=== PATIENT | female | born 1995 | race Caucasian/White ===

== ENCOUNTER 2018-05-30 04:38 | Emergency (ER) | payer SELFPAY ==
[~2018-05-30] VITALS: Ht 162.6 cm; Wt 108.9 kg
[2018-05-30] MEDS ORDERED: ACET-704 PO (04:58)
--- NOTE | 2018-05-30 05:02 | PHYS DOC ---
Adult General Chief Complaint Chief Complaint back pain HPI HPI 23 years old female with history of sciatica presented to the emergency department with pain in the lower back radiating to her right leg stated it similar to the pain she had before . Pain is worse during her Review of Systems Review of Systems Constitutional: Denies fever or chills [] Eyes: Denies change in visual acuity, redness, or eye pain [] HENT: Denies nasal congestion or sore throat [] Respiratory: Denies cough or shortness of breath [] Cardiovascular: No additional information not addressed in HPI [] GI: Denies abdominal pain, nausea, vomiting, bloody stools or diarrhea [] : Denies dysuria or hematuria [] Musculoskeletal: Denies back pain or joint pain [] Integument: Denies rash or skin lesions [] Neurologic: Denies headache, focal weakness or sensory changes [] Endocrine: Denies polyuria or polydipsia [] All other systems were reviewed and found to be within normal limits, except as documented in this note. Current Medications Current Medications Current Medications Medications (Trade) Dose Ordered Sig/Willy Start Time Stop Time Status Last Admin Dose Admin Nalbuphine HCl (Nubain) 10 mg 1X ONCE 05/30/18 05:00 05/30/18 05:01 UNV Physical Exam Physical Exam Constitutional: Well developed, well nourished, no acute distress, non-toxic appearance. [] HENT: Normocephalic, atraumatic, bilateral external ears normal, oropharynx moist, no oral exudates, nose normal. [] Eyes: PERRLA, EOMI, conjunctiva normal, no discharge. [] Neck: Normal range of motion, no tenderness, supple, no stridor. [] Cardiovascular:Heart rate regular rhythm, no murmur [] Lungs & Thorax: Bilateral breath sounds clear to auscultation [] Abdomen: Bowel sounds normal, soft, no tenderness, no masses, no pulsatile masses. [] Skin: Warm, dry, no erythema, no rash. [] Back: No tenderness, no CVA tenderness. [] Extremities: No tenderness, no cyanosis, no clubbing, ROM intact, no edema. [] Neurologic: Alert and oriented X 3, normal motor function, normal sensory function, no focal deficits noted. [] Psychologic: Affect normal, judgement normal, mood normal. [] EKG EKG [] Radiology/Procedures Radiology/Procedures [] Course & Med Decision Making Course & Med Decision Making Pertinent Labs and Imaging studies reviewed. (See chart for details) [] Final Impression Final Impression [] Problems: (1) Sciatica Qualifiers: Qualified Codes: M54.31 - Sciatica, right side Dragon Disclaimer Dragon Disclaimer This electronic medical record was generated, in whole or in part, using a voice recognition dictation system. MULU SU MD May 30, 2018 05:02
[2018-05-30] MEDS ORDERED: NALBUPHINE 10 MG/ML AMPUL. IM ONE (05:30)
[2018-05-30] MEDS ORDERED: diphenhydrAMINE 50 MG/ML VIAL IM ONE (05:30)
[2018-05-30] MEDS ORDERED: IV NORMAL SALINE 1,000ML 1,000 ML IV ONE ×2 (06:30→08:30)
[2018-05-30 06:33] LABS: BASO # 0.1 x10^3/uL (0.0-0.2); BASO % 0 % (0-3); EOS % 0 % (0-3); HEMATOCRIT 31.4 % (36.0-47.0); HEMOGLOBIN 10.4 g/dL (12.0-15.5); LYMPH # 2.1 x10^3/uL (1.0-4.8); LYMPH % 12 % (24-48); MEAN CORPUSCULAR HEMOGLOBIN 28 pg (25-35); MEAN CORPUSCULAR HGB CONC 33 g/dL (31-37); MEAN CORPUSCULAR VOLUME 83 fL (79-100); MONO # 0.8 x10^3/uL (0.0-1.1); MONO % 5 % (0-9); NEUT # 14.5 x10^3uL (1.8-7.7); NEUT % 83 % (31-73); PLATELET COUNT 292 x10^3/uL (140-400); RED BLOOD COUNT 3.77 x10^6/uL (3.50-5.40); RED CELL DISTRIBUTION WIDTH 15.1 % (11.5-14.5); WHITE BLOOD COUNT 17.5 x10^3/uL (4.0-11.0)
[2018-05-30 06:36] LABS: ALBUMIN 2.3 g/dL (3.4-5.0); ALBUMIN/GLOBULIN RATIO 0.5 (1.0-1.7); CALCIUM 8.2 mg/dL (8.5-10.1); CREATININE 0.6 mg/dL (0.6-1.0); GFR 121.8; TOTAL BILIRUBIN 0.2 mg/dL (0.2-1.0); TOTAL PROTEIN 6.5 g/dL (6.4-8.2)
[2018-05-30 08:53] LABS: % BANDS 2 % (0-9); % LYMPHS 16 % (24-48); % MONOS 2 % (0-10); % SEGS 75 % (35-66); PLT ESTIMATE ADEQUATE (ADEQUATE); TOXIC GRANULATION SLIGHT
[2018-05-30 09:14] LABS: BACTERIA,URINE FEW /HPF (0-FEW); BILIRUBIN,URINE NEG (NEG); CLARITY,URINE CLOUDY; COLOR,URINE AMBER; GLUCOSE,URINE NEG (NEG); HYALINE CASTS, URINE OCC /HPF; NITRITE,URINE NEG (NEG); SQUAMOUS EPITHELIAL CELL,UR FEW /LPF; UROBILINOGEN,URINE 0.2 mg/dL (0.2 mg/dL)
[2018-05-30] MEDS ORDERED: ACETAMINOPHEN 325 MG TABLET PO ONE (09:15)
[2018-05-30 09:19] LABS: AMPHETAMINE/METHAMPHETAMINE POS (NEG); BARBITURATES NEG (NEG); BENZODIAZEPINES NEG (NEG); CANNABINOIDS NEG (NEG); COCAINE NEG (NEG); METHADONE NEG (NEG); OPIATES NEG (NEG); PHENCYCLIDINE NEG (NEG)
[2018-05-30] MEDS ORDERED: ONDA4TAB10 SL (09:59)
[2018-05-30 10:05] VITALS: BP 136/78
== END 2018-05-30 10:35 | disposition home or self-care (01) ==
LOC: ER 04:38
DX: O26.893 Other specified pregnancy related conditions, third trimester (principal); M54.41 Lumbago with sciatica, right side; O99.323 Drug use complicating pregnancy, third trimester; F15.90 Other stimulant use, unspecified, uncomplicated; Z3A.00 Weeks of gestation of pregnancy not specified
CPT/HCPCS: 36415; 80053; 80307; 81001; 85007; 85025; 96372; 99284; J1200; J2300; G0479; J7030

== ENCOUNTER 2019-10-15 22:13 | Emergency (ER) | payer SELFPAY ==
[~2019-10-15] VITALS: Ht 162.6 cm; Wt 108.0 kg
[~2019-10-15 22:13] MED LIST: ACET-704 PO; ONDA4TAB10 SL
[2019-10-15 22:29] VITALS: BP 159/75
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
--- NOTE | 2019-10-15 23:02 | RAD ---
Exam: Left knee 3 views INDICATION: Fall, pain TECHNIQUE: Frontal, lateral and oblique views of the left knee Comparisons: None FINDINGS: Bone mineralization is normal. No acute or healed fractures. Small suprapatellar effusion. Joint spaces are well-maintained. IMPRESSION: Small suprapatellar effusion without underlying osseous abnormality identified. Electronically signed by: Cj Jasmine MD (10/15/2019 11:00 PM) [id number]
== END 2019-10-15 23:20 | disposition home or self-care (01) ==
LOC: ER 22:13
DX: S80.01XA Contusion of right knee, initial encounter (principal); S70.11XA Contusion of right thigh, initial encounter; S60.512A Abrasion of left hand, initial encounter; S60.511A Abrasion of right hand, initial encounter; V89.9XXA Person injured in unspecified vehicle accident, initial encounter; Y93.I9 Activity, other involving external motion; Y92.89 Other specified places as the place of occurrence of the external cause; Y99.9 Unspecified external cause status
CPT/HCPCS: 73562; 99283

== ENCOUNTER 2021-01-03 23:39 | Emergency (ER) | payer SELFPAY ==
[~2021-01-03] VITALS: Ht 162.6 cm; Wt 109.7 kg
[2021-01-03 23:50] VITALS: BP 161/91
[2021-01-04] MEDS ORDERED: IV NORMAL SALINE 1,000ML 1,000 ML IV ONE (00:15)
[2021-01-04] MEDS ORDERED: ASPIRIN 325 MG TABLET PO ONE (00:15)
--- NOTE | 2021-01-04 01:00 | PHYS DOC ---
Past History Past Medical History: Other Additional Past Medical Histor: PE, endometriosis Past Surgical History: , Hysterectomy Alcohol Use: None Drug Use: None General Adult EDM: Chief Complaint: CHEST PAIN HPI: HPI: Patient is a [age] year old [sex] who presents with [] Review of Systems: Review of Systems: Constitutional: Denies fever or chills Eyes: Denies redness or eye pain HENT: Denies nasal congestion or sore throat Respiratory: Denies cough or shortness of breath Cardiovascular: Denies chest pain or palpitations GI: Denies abdominal pain, nausea, or vomiting : Denies dysuria or hematuria Musculoskeletal: Denies back pain or joint pain Integument: Denies rash or skin lesions Neurologic: Denies headache, focal weakness or sensory changes Complete systems were reviewed and found to be within normal limits, except as documented in this note. Current Medications: Current Meds: Current Medications Medications (Trade) Dose Ordered Sig/Willy Start Time Stop Time Status Last Admin Dose Admin Aspirin (Alan Aspirin) 325 mg 1X ONCE 01/04/21 00:15 01/04/21 00:20 DC 01/04/21 00:57 325 MG Lorazepam (Ativan Inj) 0.5 mg 1X ONCE 01/04/21 00:15 01/04/21 00:20 DC 01/04/21 00:57 0.5 MG Sodium Chloride 1,000 ml @ 1,000 mls/hr 1X ONCE 01/04/21 00:15 01/04/21 01:14 01/04/21 00:58 1,000 MLS/HR Allergies: Allergies: Allergies Coded Allergies Type Severity Reaction Last Updated Verified No Known Drug Allergies 05/30/18 No Physical Exam: PE: Constitutional: Well developed, well nourished, no acute distress, non-toxic appearance HENT: Normocephalic, atraumatic Eyes: PERRL, EOMI, conjunctiva normal, no discharge Neck: Normal range of motion, no tenderness, supple Lungs & Thorax: No respiratory distress, equal chest rise and fall Abdomen: Soft, no tenderness Skin: Warm, dry, no erythema, no rash Back: No tenderness, no CVA tenderness Extremities: No tenderness, ROM intact, no edema Neurologic: Alert and oriented X 3, normal motor function, normal sensory function, no focal deficits noted Psychologic: Affect normal, judgment normal Current Patient Data: Vital Signs: Vital Signs Date Time Temp Pulse Resp B/P (MAP) Pulse Ox O2 Delivery O2 Flow Rate FiO2 01/03/21 23:50 98.4 88 18 161/91 (114) 96 Room Air EKG: EKG: @2351 NSR at 86bpm, NO ST elevation, QRS 88ms, QT/QTc 344/414ms Radiology/Procedures: Radiology/Procedures: [] Heart Score: C/O Chest Pain: Yes HEART Score for Chest Pain: HEART Score for Chest Pain Response (Comments) Value History Slighlty/Non-Suspicious 0 ECG Normal 0 Age < 45 0 Risk Factors No Risk Factors 0 Troponin < Normal Limit 0 Total 0 Risk Factors: Risk Factors: DM, Current or recent (<one month) smoker, HTN, HLP, family history of CAD, obesity. Risk Scores: Score 0 - 3: 2.5% MACE over next 6 weeks - Discharge Home Score 4 - 6: 20.3% MACE over next 6 weeks - Admit for Clinical Observation Score 7 - 10: 72.7% MACE over next 6 weeks - Early Invasive Strategies Course & Med Decision Making: Course & Med Decision Making Pertinent Labs and Imaging studies reviewed. (See chart for details) Patient stable for discharge with outpatient follow-up with PCP. Discussed findings and plan with patient, who acknowledges understanding and agreement. Michael Disclaimer: Michael Disclaimer: This electronic medical record was generated, in whole or in part, using a voice recognition dictation system. Departure Departure: Impression: Primary Impression: Atypical chest pain Disposition: HOME / SELF CARE / HOMELESS Condition: STABLE Referrals: PCP,NO (PCP) Patient Instructions: Alcohol and Drug Addiction, Finding Treatment, Anxiety and Panic Attacks, [id number], Chest Pain (Nonspecific), [id number], Methamphetamine Abuse, Complications Additional Instructions: Please call [facility] at to seek help for your mental health and/or javier g/alcohol abuse. CHILANGO GREEN DO January 04, 2021 01:00
--- NOTE | 2021-01-04 01:01 | EKG ---
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
[2021-01-04 01:25] LABS: BASO % 1 % (0-3); EOS # 0.1 x10^3/uL (0.0-0.7); EOS % 1 % (0-3); HEMATOCRIT 42.6 % (36.0-47.0); HEMOGLOBIN 14.4 g/dL (12.0-15.5); LYMPH # 1.8 x10^3/uL (1.0-4.8); LYMPH % 21 % (24-48); MEAN CORPUSCULAR HEMOGLOBIN 31 pg (25-35); MEAN CORPUSCULAR HGB CONC 34 g/dL (31-37); MEAN CORPUSCULAR VOLUME 92 fL (79-100); MONO # 0.7 x10^3/uL (0.0-1.1); MONO % 8 % (0-9); NEUT % 69 % (31-73); PLATELET COUNT 296 x10^3/uL (140-400); RED BLOOD COUNT 4.64 x10^6/uL (3.50-5.40); RED CELL DISTRIBUTION WIDTH 13.7 % (11.5-14.5); WHITE BLOOD COUNT 8.7 x10^3/uL (4.0-11.0)
[2021-01-04 01:39] LABS: CALCIUM 9.5 mg/dL (8.5-10.1); CREATININE 0.9 mg/dL (0.6-1.0); GFR 75.1; POTASSIUM 3.9 mmol/L (3.5-5.1)
[2021-01-04 01:47] LABS: PREG TEST PT QUAL NEGATIVE (NEG)
[2021-01-04 02:06] LABS: ALBUMIN 3.5 g/dL (3.4-5.0); ALBUMIN/GLOBULIN RATIO 0.9 (1.0-1.7); MAGNESIUM 2.1 mg/dL (1.8-2.4); TOTAL BILIRUBIN 0.5 mg/dL (0.2-1.0); TOTAL PROTEIN 7.5 g/dL (6.4-8.2)
--- NOTE | 2021-01-04 02:23 | RAD ---
INDICATION: Reason: chest pain / Spl. Instructions: / History: COMPARISON: None. FINDINGS: Single view of chest obtained. Left lung base is obscured secondary to overlying cardiac silhouette and soft tissues. No definite co nsolidation elsewhere in the lungs. Cardiac silhouette unremarkable IMPRESSION: * No focal airspace consolidation or edema. Electronically signed by: Linden Macario MD (01/04/2021 2:21 AM) [id number]
== END 2021-01-04 02:40 | disposition home or self-care (01) ==
LOC: ER 23:39
DX: R07.89 Other chest pain (principal)
CPT/HCPCS: 36415; 71045; 80053; 82553; 83690; 83735; 83880; 84484; 84703; 85025; 85379; 85610; 85730; 93005; 96361; 96374; 99285; J2060; J7030

== ENCOUNTER 2021-01-05 16:21 | Emergency (ER) | payer SELFPAY ==
[~2021-01-05] VITALS: Ht 165.1 cm; Wt 108.2 kg
--- NOTE | 2021-01-05 16:50 | PHYS DOC ---
Past History Past Medical History: Other Additional Past Medical Histor: PE, endometriosis (PETER WHYTE MD) Past Surgical History: , Hysterectomy (PETER WHYTE MD) Alcohol Use: None Drug Use: None (EPTER WHYTE MD) General Adult EDM: Chief Complaint: MULTIPLE COMPLAINTS HPI: HPI: Patient is a 25-year-old female coming in for multiple complaints including chest tightness with pain, shortness of breath, subjective fever and chills, tension headache, and multiple atraumatic bruises around her body.. Patient states she does not have history of easy bruising, denies any recent trauma, blackouts, or assault. Patient states that 4 days ago she started using methamphetamines again. Says she is injected several times and missed several times in both upper and left lower extremity. Patient states she had been clean for 2 years. Denies any other intoxication or ingestion. Patient states her last use was 7 AM (about 9 and half hours prior to arrival). Patient states she did not sleep last night and was seen in this emergency department the night before. Patient states that after she was seen in the emergency department on [address] she was able to go home and sleep. (PETER WHYTE MD) Review of Systems: Review of Systems: All other systems within normal limits except for as noted in the HPI (PETER WHYTE MD) Current Medications: Current Meds: Current Medications Medications (Trade) Dose Ordered Sig/Willy Start Time Stop Time Status Last Admin Dose Admin Lorazepam (Ativan Inj) 1 mg 1X ONCE 01/05/21 16:45 01/05/21 16:46 UNV Sodium Chloride 1,000 ml @ 1,000 mls/hr 1X ONCE 01/05/21 16:45 01/05/21 17:44 UNV (PETER WHYTE MD) Allergies: Allergies: Allergies Coded Allergies Type Severity Reaction Last Updated Verified No Known Drug Allergies 05/30/18 No (PETER WHYTE MD) Physical Exam: PE: Constitutional: Well developed, well nourished, anxious and tearful [] HENT: Normocephalic, atraumatic, bilateral external ears normal, nose normal. [] Eyes: PERRLA, conjunctiva normal, no discharge. [] Neck: No rigidity, supple, no stridor. [] Cardiovascular: Regular rate and rhythm, brisk cap refill [] Lungs & Thorax: Non labored symmetric respirations, no tachypnea or respiratory distress [] Abdomen: Soft, nondistended. Skin: Warm, dry, no erythema, no rash. [Multiple bruises to chest, all extremities, neck, 1 small bruise to stomach, no bruising on back. No palmar lesions no splinter hemorrhages] Back: Unremarkable Extremities: No deformities, range of motion grossly intact, no lower extremity edema [] Neurologic: Alert and oriented X 3, no focal deficits noted. [] Psychologic: Anxious and tearful l. [] (PETER WHYTE MD) EKG: EKG: Sinus rhythm, heart rate 93 per minute, normal axis, no ST elevation or depression, no ectopy. Normal intervals. [] (PETER WHYTE MD) Radiology/Procedures: Radiology/Procedures: [] (PETER WHYTE MD) Heart Score: C/O Chest Pain: Yes HEART Score for Chest Pain: HEART Score for Chest Pain Response (Comments) Value History Slighlty/Non-Suspicious 0 ECG Normal 0 Age < 45 0 Risk Factors 1 or 2 Risk Factors 1 Total 1 Risk Factors: Risk Factors: DM, Current or recent (<one month) smoker, HTN, HLP, family history of CAD, obesity. Risk Scores: Score 0 - 3: 2.5% MACE over next 6 weeks - Discharge Home Score 4 - 6: 20.3% MACE over next 6 weeks - Admit for Clinical Observation Score 7 - 10: 72.7% MACE over next 6 weeks - Early Invasive Strategies (PETER WHYTE MD) Course & Med Decision Making: Course & Med Decision Making Pertinent Labs and Imaging studies reviewed. (See chart for details) Care transitioned at shift change, pending labs and imaging [] (PETER WHYTE MD) Course & Med Decision Making The patient is has been seen by behavioral health. They are providing her resources for rehabilitation. These are all voluntary. The patient is more calm at this time. Labs are nonconcerning. She is stable for discharge at this time. (JESSY BORRERO DO) Dragon Disclaimer: Dragon Disclaimer: This electronic medical record was generated, in whole or in part, using a voice recognition dictation system. (PETER WHYTE MD) Departure Departure: Impression: Primary Impression: Methamphetamine abuse Disposition: 01 HOME / SELF CARE / HOMELESS Condition: STABLE Referrals: PCP,NO (PCP) Patient Instructions: Methamphetamine Abuse, Complications PETER WHYTE MD January 05, 2021 16:50 JESSY BORRERO DO January 05, 2021 19:02
--- NOTE | 2021-01-05 16:50 | EKG ---
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
[2021-01-05] MEDS: IV NORMAL SALINE 1,000ML 1,000 ML IV ONE (17:00)
[2021-01-05 17:26] LABS: BASO # 0.1 x10^3/uL (0.0-0.2); BASO % 1 % (0-3); EOS # 0.1 x10^3/uL (0.0-0.7); EOS % 1 % (0-3); HEMATOCRIT 43.6 % (36.0-47.0); HEMOGLOBIN 14.6 g/dL (12.0-15.5); LYMPH # 1.8 x10^3/uL (1.0-4.8); LYMPH % 21 % (24-48); MEAN CORPUSCULAR HEMOGLOBIN 31 pg (25-35); MEAN CORPUSCULAR HGB CONC 34 g/dL (31-37); MEAN CORPUSCULAR VOLUME 92 fL (79-100); MONO # 0.8 x10^3/uL (0.0-1.1); MONO % 10 % (0-9); NEUT # 5.7 x10^3uL (1.8-7.7); NEUT % 68 % (31-73); PLATELET COUNT 319 x10^3/uL (140-400); RED BLOOD COUNT 4.72 x10^6/uL (3.50-5.40); RED CELL DISTRIBUTION WIDTH 13.6 % (11.5-14.5); WHITE BLOOD COUNT 8.4 x10^3/uL (4.0-11.0)
[2021-01-05 17:32] LABS: CALCIUM 9.3 mg/dL (8.5-10.1); GFR 66.5
[2021-01-05 17:45] LABS: ALBUMIN 3.7 g/dL (3.4-5.0); MAGNESIUM 2.2 mg/dL (1.8-2.4); PHOSPHORUS 3.6 mg/dL (2.6-4.7); TOTAL BILIRUBIN 0.3 mg/dL (0.2-1.0); TOTAL PROTEIN 7.5 g/dL (6.4-8.2)
[2021-01-05 17:47] LABS: BACTERIA,URINE 0 /HPF (0-FEW); BARBITURATES NEG (NEG); BENZODIAZEPINES NEG (NEG); BILIRUBIN,URINE NEG (NEG); CANNABINOIDS NEG (NEG); CLARITY,URINE CLEAR; COCAINE NEG (NEG); COLOR,URINE YELLOW; GLUCOSE,URINE NEG (NEG); METHADONE NEG (NEG); NITRITE,URINE NEG (NEG); OPIATES NEG (NEG); PHENCYCLIDINE NEG (NEG); SQUAMOUS EPITHELIAL CELL,UR FEW /LPF; UROBILINOGEN,URINE 0.2 mg/dL (0.2 mg/dL); WBC,URINE OCC /HPF (0-4)
[2021-01-05 17:51] LABS: AMPHETAMINE/METHAMPHETAMINE POS (NEG)
[2021-01-05 18:33] LABS: SEDIMENTATION RATE 22 (0-25)
[2021-01-05 19:00] VITALS: BP 146/80
== END 2021-01-05 19:18 | disposition home or self-care (01) ==
LOC: ER 16:21
DX: F15.10 Other stimulant abuse, uncomplicated (principal); R07.9 Chest pain, unspecified; Z90.710 Acquired absence of both cervix and uterus
CPT/HCPCS: 36415; 80053; 80307; 81001; 81025; 83605; 83735; 83880; 84100; 84484; 85025; 85379; 85384; 85610; 85651; 86140; 93005; 96361; 96374; 96376; 99284; G0480; J2060; J7030